=== PATIENT | female | born 1930 | race American Indian/Alaskan Native ===

== ENCOUNTER 2016-10-24 10:46 | Emergency (ER) | payer MEDICARE ==
[2016-10-24 11:18] VITALS: BP 148/102
[2016-10-24] MEDS ORDERED: BACTRIM DS PO ONE (12:18)
[2016-10-24] MEDS ORDERED: BOOSTRIX IM ONE (12:18)
--- NOTE | 2016-10-24 12:24 | Emergency Department Report ---
HPI - General Chief Complaint: Wound/Laceration Time Seen by Provider: 10/24/16 12:17 - HPI HPI: This is a 86-year-old Afro-[place] female presents to the emergency department with a laceration to the left thumb that happened accidentally last night about 9 PM. Patient says she was walking to house when she stumbled and braced herself with what appears to be her left hand. She denies any known trauma that may have caused a laceration but shortly afterward noticed the cut on her left thumb. She stopped the bleeding with some pressure held by a tissue. Patient is concerned as she is diabetic. She denies any current bleeding, surrounding redness, purulent discharge. She has full range of motion. She is unsure last time she had a tetanus vaccination. She has a primary care doctor but has been unable to see them regarding her symptoms. She is right-hand dominant. ED Past Medical Hx - Past Medical History Hx Renal Disease: Yes - Surgical History Additional Surgical History: hysterectomy - Social History Smoking Status: Never Smoker Substance Use Type: None - Medications Home Medications: Home Medications Medication Instructions Recorded Confirmed Last Taken Type Sulfamethoxazole/Trimethoprim 1 each PO BID #14 tablet 10/24/16 Unknown Rx [Bactrim DS TAB] ED Review of Systems ROS: Stated complaint: FINGER INJURY Other details as noted in HPI Comment: All other systems reviewed and negative Constitutional: denies: chills, fever Eyes: denies: eye pain, eye discharge, vision change ENT: denies: ear pain, throat pain Respiratory: denies: cough, shortness of breath, wheezing Cardiovascular: denies: chest pain, palpitations Gastrointestinal: denies: abdominal pain, nausea, diarrhea Genitourinary: denies: urgency, dysuria, discharge Musculoskeletal: denies: back pain, joint swelling Skin: other (laceration). denies: rash, lesions Neurological: denies: headache, weakness, paresthesias Physical Exam - Physical Exam Vital Signs: Vital Signs 10/24/16 11:14 Temperature 98.5 F Pulse Rate 86 Respiratory 18 Rate Blood Pressure 148/102 O2 Sat by Pulse 100 Oximetry Physical Exam: GENERAL: The patient is well-developed well-nourished. HEENT: Normocephalic. Atraumatic. Extraocular motions are intact. Patient has moist mucous membranes. NECK: Supple. Trachea is midline. CHEST/LUNGS: Clear to auscultation. There is no respiratory distress noted. HEART/CARDIOVASCULAR: Regular. There is no tachycardia. There is no gallop rub or murmur. ABDOMEN: Abdomen is soft, nontender. SKIN: There is a L-shaped laceration and/or skin avulsion to the left thumb on the radial side that is about 1.5-2 cm in total length. It is currently completely approximated. No bleeding, weeping or drainage.. NEURO: The patient is awake, alert, and oriented. The patient is cooperative. The patient has no focal neurologic deficits. The patient has normal speech. MUSCULOSKELETAL: There is no tenderness or deformity. There is no limitation range of motion. There is no evidence of acute injury. [employer] strength is 5 over 5 bilaterally. Cap refill less than 2 seconds. Radial pulses +2 over 4 bilaterally. ED Course Vital Signs 10/24/16 11:14 Temperature 98.5 F Pulse Rate 86 Respiratory 18 Rate Blood Pressure 148/102 O2 Sat by Pulse 100 Oximetry - Laceration /Wound Repair Right Finger Wound Location: upper extremity Wound Length (cm): 2 Wound's Depth, Shape: superficial, flap Wound Explored: clean Wound Repaired With: Steri-strips, Dermabond Layer Closure?: No Sterile Dressing Applied?: Yes ED Medical Decision Making - Medical Decision Making 86-year-old female presents to the emergency department with a laceration to the left thumb that occurred last night around 9 PM. Since patient has been here for the past few hours, her wound is at least 12 hours old. It is superficial, and an L shape flap and is well approximated. There is not a currently appear to be any signs of infection. Patient was given her tetanus vaccination and a first dose of Bactrim. The area appears suitable for Steri- Strips and Dermabond which was done per the procedure section. Patient will keep on the sterile dressing and the thumb splint for at least 24 hours. We discussed wound care and monitoring for infection. She will go home with a prescription for Bactrim. She is to follow-up with Dr. Paulino on the next 2-3 days for a wound check and return to the ER sooner with any worsening of her symptoms. - Differential Diagnosis laceration, abrasion, skin avulsion, ulcer Critical Care Time: No Critical care attestation.: If time is entered above; I have spent that time in minutes in the direct care of this critically ill patient, excluding procedure time. ED Disposition Clinical Impression: Laceration of thumb Qualifiers: Encounter type: initial encounter Laterality: left Qualified Code(s): S61.012A - Laceration without foreign body of left thumb without damage to nail, initial encounter Hypertension Qualifiers: Hypertension type: essential hypertension Qualified Code(s): I10 - Essential ( primary) hypertension Disposition: DISCHARGED TO HOME OR SELFCARE Is pt being admited?: No Condition: Stable Instructions: Laceration (ED), Skin Adhesive Care (ED), Hypertension (ED) Additional Instructions: Please keep your bandage on for the next 24 hours. After that take the bandage off and make sure the area is clean and dry. You can use soap and water to clean the area and then make sure it is dry afterwards. The Steri-Strips and skin glue will come off on its own. Take the antibiotics as prescribed. Make sure your blood sugar is well controlled. Follow-up with her primary care doctor in the next few days. Return to the emergency department with any surrounding redness, discharge or pus, continued bleeding, worsening of her symptoms or any acute distress. Prescriptions: Sulfamethoxazole/Trimethoprim [Bactrim DS TAB] 1 each PO BID #14 tablet Referrals: KRISTY ROCHA MD [Primary Care Provider] - 3-5 Days Time of Disposition: 13:02
== END 2016-10-24 13:24 | disposition home or self-care (01) ==
LOC: ED 10:46
DX: S61.012A Laceration without foreign body of left thumb without damage to nail, initial encounter (principal); I10 Essential (primary) hypertension; W45.8XXA Other foreign body or object entering through skin, initial encounter; Y93.89 Activity, other specified; Y99.8 Other external cause status; Y92.89 Other specified places as the place of occurrence of the external cause
CPT/HCPCS: 82962; 90471; 90715

== ENCOUNTER 2018-11-15 10:28 | Emergency (ER) | payer MEDICARE ==
--- NOTE | 2018-11-15 11:12 | Emergency Department Report ---
Blank Doc - Documentation Documentation: This is a 88-year-old female that presents with nausea and vomiting. Denies any other complaints. Granddaughter is with patient. Deneis any abdominal pain or chest pain. Labs ordered Will send to [facility]
--- NOTE | 2018-11-15 11:15 | Emergency Department Report ---
- General Chief complaint: Nausea/Vomiting/Diarrhea Stated complaint: VOMIT/HARD TO SLEEP Time Seen by Provider: 11/15/18 11:05 Source: patient, family Mode of arrival: Ambulatory Limitations: No Limitations - History of Present Illness Initial comments: Patient is a very pleasant 88-year-old -Central [place] female who comes in today with her daughter. The daughter is saying that the patient has had a poor appetite, nausea and difficulty sleeping. Her primary care physician has placed her on Xanax. And since then the patient has been less active than normal. Patient is ambulatory. She denies chest pain shortness of breath or fever. She actually asked and appears much younger than her stated age. -: Gradual Severity: mild - Related Data Previous Rx's Medication Instructions Recorded Last Taken Type Ondansetron [Zofran Odt] 4 mg PO Q8HR PRN #10 tab.rapdis 11/15/18 Unknown Rx hydrOXYzine PAMOATE [Vistaril] 25 mg PO QHS PRN #20 capsule 11/15/18 Unknown Rx Allergies Allergy/AdvReac Type Severity Reaction Status Date / Time No Known Allergies Allergy Verified 11/15/18 10:29 ED Review of Systems ROS: Stated complaint: VOMIT/HARD TO SLEEP Other details as noted in HPI Comment: All other systems reviewed and negative Constitutional: denies: chills, fever Eyes: denies: eye pain ENT: denies: ear pain Respiratory: denies: cough Cardiovascular: denies: chest pain Endocrine: denies: excessive sweating Gastrointestinal: as per HPI, nausea, vomiting. denies: abdominal pain, diarrhea, constipation, hematemesis, melena Genitourinary: denies: urgency Musculoskeletal: denies: back pain Skin: denies: rash Neurological: denies: headache Psychiatric: as per HPI, other (difficulty sleeping). denies: anxiety, depression, auditory hallucinations, visual hallucinations, homicidal thoughts, suicidal thoughts ED Past Medical Hx - Past Medical History Hx Renal Disease: Yes - Surgical History Additional Surgical History: hysterectomy - Social History Smoking Status: Former Smoker Substance Use Type: None - Medications Home Medications: Home Medications Medication Instructions Recorded Confirmed Last Taken Type Ondansetron [Zofran Odt] 4 mg PO Q8HR PRN #10 tab.rapdis 11/15/18 Unknown Rx hydrOXYzine PAMOATE [Vistaril] 25 mg PO QHS PRN #20 capsule 11/15/18 Unknown Rx ED Physical Exam - General Limitations: No Limitations General appearance: alert, in no apparent distress - Head Head exam: Present: atraumatic, normocephalic - Eye Eye exam: Present: PERRL - ENT ENT exam: Present: mucous membranes moist - Neck Neck exam: Present: normal inspection - Respiratory Respiratory exam: Present: normal lung sounds bilaterally - Cardiovascular Cardiovascular Exam: Present: regular rate, tachycardia (resolved on follow-up exam) - GI/Abdominal GI/Abdominal exam: Present: soft, normal bowel sounds. Absent: tenderness - Rectal Rectal exam: Present: deferred - Extremities Exam Extremities exam: Present: normal inspection, full ROM - Back Exam Back exam: Present: normal inspection, full ROM - Neurological Exam Neurological exam: Present: alert, oriented X3, CN II-XII intact, normal gait - Psychiatric Psychiatric exam: Present: normal affect, normal mood, anxious - Skin Skin exam: Present: warm, dry, intact ED Course Vital Signs 11/15/18 11/15/18 10:39 15:16 Temperature 98.9 F Pulse Rate 112 H 78 Respiratory 18 20 Rate Blood Pressure 171/70 Blood Pressure 117/63 [Right] O2 Sat by Pulse 100 99 Oximetry - Reevaluation(s) Reevaluation #1: 11/15/18 home meds metformin hctz proglitazone glimepride asa xanax statin lisinopril ED Medical Decision Making - Lab Data Result diagrams: 11/15/18 11:29 11/15/18 11:26 - EKG Data -: EKG Interpreted by Me EKG shows normal: sinus rhythm Rate: normal - EKG Data When compared to previous EKG there are: no significant change Interpretation: no acute changes - Radiology Data Radiology results: report reviewed, image reviewed NAP - Medical Decision Making Lungs discussion with patient and her family about the Xanax. I told them that this is a very high-risk medication and a frail elderly patient. We discussed increased frequency of falls with Xanax. They're going to stop it and try Vistaril at night. In talking with the patient she is a very strong willed and active 88-year-old who I think is coming to terms with some of her age related limitations in mobility. She is tearful at times on discussion. Also seems a bit depressed at times. There is no dementia. The patient recall short and long-term incidence without difficulty. The patient has been in the ER for several hours and has had no nausea and vomiting. We've discussed appetite and eating. We've also discussed with the daughter the decreased caloric need often needed by the elderly. We have discussed the need for hydration. Labs are noted. Chest x-ray noted. UA noted. 12-lead EKG was completed due to tachycardia and it showed no acute process. The tachycardia resolved. I think it was initially elevated due to patient walking from the waiting room to exam room 37. She did this without chest pain or shortness of breath Patient is being discharged home with her daughter on Zofran as needed. And a prescription for Vistaril. They've been asked to follow-up with the primary care. Labs 11/15/18 11/15/18 11/15/18 11:26 11:29 14:10 WBC 6.2 RBC 3.86 Hgb 11.4 Hct 34.5 MCV 89 MCH 29 MCHC 33 RDW 13.8 Plt Count 272 Lymph % (Auto) 17.7 [place] % (Auto) 6.2 Eos % (Auto) 0.2 Baso % (Auto) 1.2 Lymph # 1.1 L [place] # 0.4 Eos # 0.0 Baso # 0.1 Seg Neutrophils % 74.7 H Seg Neutrophils # 4.6 Sodium 138 Potassium 3.8 Chloride 93.9 L Carbon Dioxide 28 Anion Gap 20 BUN 29 H Creatinine 0.7 Estimated GFR > 60 BUN/Creatinine Ratio 41 Glucose 153 H Calcium 9.6 Total Bilirubin 0.40 AST 19 ALT 8 Alkaline Phosphatase 32 L Troponin T < 0.010 Total Protein 7.1 Albumin 4.2 Albumin/Globulin Ratio 1.4 Lipase 9 L Urine Color Yellow Urine Turbidity Clear Urine pH 5.0 Ur Specific [place] 1.027 Urine Protein 30 mg/dl Urine Glucose (UA) Neg Urine Ketones 20 Urine Blood Neg Urine Nitrite Neg Urine Bilirubin Neg Urine Urobilinogen 2.0 Ur Leukocyte Esterase Tr Urine WBC (Auto) 4.0 Urine RBC (Auto) 10.0 U Epithel Cells (Auto) 1.0 Urine Bacteria (Auto) 1+ Urine Mucus 3+ - Differential Diagnosis RO INFECTION/ RO UTI Critical care attestation.: If time is entered above; I have spent that time in minutes in the direct care of this critically ill patient, excluding procedure time. ED Disposition Clinical Impression: Vomiting, Anxiety Disposition: DC-01 TO HOME OR SELFCARE Is pt being admited?: No Does the pt Need Aspirin: No Condition: Stable Additional Instructions: DO NOT TAKE XANAX USE VISTARIL IF NEEDED CAUTION WITH FALLS DIET TOLERATED MEDS INSTRUCTED FOLLOW UP WITH PCP NEXT WEEK TO BE SURE GETTING BETTER Prescriptions: hydrOXYzine PAMOATE [Vistaril] 25 mg PO QHS PRN #20 capsule PRN Reason: Anxiety Ondansetron [Zofran Odt] 4 mg PO Q8HR PRN #10 tab.rapdis PRN Reason: Vomiting Referrals: EVERETT NAJERA DO [Primary Care Provider] - 3-5 Days Time of Disposition: 13:56
[2018-11-15 11:38] LABS: Basophils # (Auto) 0.1 K/mm3 (0.0-0.1); Basophils % (Auto) 1.2 % (0.0-1.8); Eosinophils % (Auto) 0.2 % (0.0-4.3); Hematocrit 34.5 % (30.3-42.9); Hemoglobin 11.4 gm/dl (10.1-14.3); Lymphocytes # (Auto) 1.1 K/mm3 (1.2-5.4); Lymphocytes % (Auto) 17.7 % (13.4-35.0); Mean Corpuscular HGB Conc 33 % (30-34); Mean Corpuscular Volume 89 fl (79-97); Monocytes # (Auto) 0.4 K/mm3 (0.0-0.8); Monocytes % (Auto) 6.2 % (0.0-7.3); Platelet Count 272 K/mm3 (140-440); Red Blood Count 3.86 M/mm3 (3.65-5.03); Red Cell Distribution Width 13.8 % (13.2-15.2)
[2018-11-15 12:01] LABS: Alanine Aminotransferase 8 units/L (7-56); Albumin 4.2 g/dL (3.9-5); BUN/Creatinine Ratio 41; Blood Urea Nitrogen 29 mg/dL (7-17); Calcium 9.6 mg/dL (8.4-10.2); Hemolysis Index 3
--- NOTE | 2018-11-15 13:35 | XRay Report ---
ROUTINE CHEST, TWO VIEWS: HISTORY: Weakness. The trachea, heart, mediastinal contour, lung doyle and bony thorax are unremarkable. Eventration of the anterior right hemidiaphragm is noted. IMPRESSION: Unremarkable chest x-ray.
[2018-11-15 14:58] LABS: Bacteria,Urine 1+ /HPF (Negative); Bilirubin,Urine NEG (Negative); Blood,Urine NEG (Negative); Color,Urine Yellow (Yellow); Mucus,Urine 3+ /HPF
[2018-11-15 15:17] VITALS: BP 117/63
== END 2018-11-15 15:16 | disposition home or self-care (01) ==
LOC: ED 10:28
DX: F41.9 Anxiety disorder, unspecified (principal); R11.2 Nausea with vomiting, unspecified; R63.0 Anorexia; Z90.710 Acquired absence of both cervix and uterus; Z87.891 Personal history of nicotine dependence
CPT/HCPCS: 36415; 71046; 80053; 81001; 83690; 84484; 85025; 93005; 93010; 99284

== ENCOUNTER 2020-02-16 21:19 | Emergency (ER) | payer MEDICARE ==
--- NOTE | 2020-02-16 22:47 | XRay Report ---
CHEST 2 VIEWS INDICATION: increased mucous production. COMPARISON: Chest x-ray from 11/15/2018 FINDINGS: Support devices: None. Heart: Within normal limits. Lungs/pleura: No acute air space or interstitial disease. No pneumothorax. Additional findings: None. IMPRESSION: 1. No acute findings. Signer Name: Sami Andujar MD Signed: 02/16/2020 10:42 PM Workstation Name: [id number]
--- NOTE | 2020-02-16 23:13 | Emergency Department Report ---
ED General Adult HPI - General Chief complaint: Upper Respiratory Infection Stated complaint: MOUTH PAIN Time Seen by Provider: 02/16/20 22:11 Source: patient Mode of arrival: Ambulatory Limitations: No Limitations - History of Present Illness Initial comments: 89-year-old female the past medical history of dementia brought to the ER by her doctor for complaints of mouth pain last night. Patient apparently has had intermittent compulsions to spit her saliva out x1 year secondary to dementia. Otherwise she is able to eat and drink and swallow food and liquids without difficulty. Patient complains of feeling like something was moving or coming out of her mouth. Patient wears upper and lower dentures and typically sleeps in them and takes them only out in the morning to wash them before putting them back in. Patient denies any pain or discomfort now - Related Data Previous Rx's Medication Instructions Recorded Last Taken Type Ondansetron [Zofran Odt] 4 mg PO Q8HR PRN #10 tab.rapdis 11/15/18 Unknown Rx hydrOXYzine PAMOATE [Vistaril] 25 mg PO QHS PRN #20 capsule 11/15/18 Unknown Rx Allergies Allergy/AdvReac Type Severity Reaction Status Date / Time No Known Allergies Allergy Verified 11/15/18 10:29 ED Review of Systems ROS: Stated complaint: MOUTH PAIN Other details as noted in HPI Comment: All other systems reviewed and negative ED Past Medical Hx - Past Medical History Previous Medical History?: Yes Hx Diabetes: Yes Hx Renal Disease: Yes Hx Dementia: Yes - Surgical History Past Surgical History?: Yes Additional Surgical History: hysterectomy - Social History Smoking Status: Former Smoker Substance Use Type: None - Medications Home Medications: Home Medications Medication Instructions Recorded Confirmed Last Taken Type Ondansetron [Zofran Odt] 4 mg PO Q8HR PRN #10 tab.rapdis 11/15/18 Unknown Rx hydrOXYzine PAMOATE [Vistaril] 25 mg PO QHS PRN #20 capsule 11/15/18 Unknown Rx ED Physical Exam - General Limitations: No Limitations - Other Other exam information: General: No acute distress Head: Atraumatic Eyes: normal appearance ENT: Moist mucous membranes patient is an dentulous and had both upper and lower dentures removed. There were no or ulcerations, rash, thrush, or swelling or tender areas. Patient did have a pedunculated lesion coming from the right lower cheek area of the mouth that was nontender likely chronic. Patient constantly spitting her saliva out during the exam Neck: Normal appearance, no midline tenderness Chest: Clear to auscultation bilaterally CV: Regular rate and rhythm Abdomen: Soft, normal bowel sounds, nontender, nondistended, no rebound or guarding Back: Normal inspection Extremity: Normal inspection, full range of motion Neuro: Oriented to person, hospital, and year, no facial asymmetry, speech clear, no gross motor sensory deficit Psych: Appropriate behavior Skin: No rash ED Course Vital Signs 02/16/20 21:26 Temperature 99.5 F Pulse Rate 95 H Respiratory 18 Rate Blood Pressure 153/76 O2 Sat by Pulse 99 Oximetry ED Medical Decision Making - Radiology Data Radiology results: report reviewed CHEST 2 VIEWS INDICATION: increased mucous production. COMPARISON: Chest x-ray from 11/15/2018 FINDINGS: Support devices: None. Heart: Within normal limits. Lungs/pleura: No acute air space or interstitial disease. No pneumothorax. Additional findings: None. IMPRESSION: 1. No acute findings. - Medical Decision Making Patient has obvious dementia and has very difficulty communicating the exact symptoms that brought her to the ED. She only can say that she felt like something was moving and the temperature was increasing in the top of her mouth. She denies pain. Dentures were removed in the ED and gums appear normal without acute infection or lesions. Incidental pedunculated lesion noted in the mouth that is nontender. Patient spitting into a bag during examination which is chronic as per patient's daughter at the bedside. Daughter states otherwise patient is able to swallow food and liquids without difficulty. Outpatient follow-up will be encouraged. Pmd Dr Rocha Critical Care Time: No Critical care attestation.: If time is entered above; I have spent that time in minutes in the direct care of this critically ill patient, excluding procedure time. ED Disposition Clinical Impression: Dementia, Wears dentures, Mass of oral cavity Disposition: DC-01 TO HOME OR SELFCARE Is pt being admited?: No Does the pt Need Aspirin: No Condition: Stable Instructions: Dementia (ED) Additional Instructions: Take the medication as prescribed. Follow-up with your doctor or doctor/clinic provided. Return if symptoms worsen as indicated by your discharge instructions. On exam there is a pedunculated lesion on the right side of the mouth which is nontender and likely chronic. Follow-up with your primary carev doctor and oral surgeon for further evaluation and diagnosis. No other abnormality was seen on exam. Your primary care doctor can provide a referral as needed. Referrals: KRISTY ROCHA MD [Primary Care Provider] - 3-5 Days Time of Disposition: 23:20
[2020-02-18 12:54] VITALS: BP 153/76
== END 2020-02-16 23:51 | disposition home or self-care (01) ==
LOC: ED 21:19
DX: K13.79 Other lesions of oral mucosa (principal); F03.90 Unspecified dementia, unspecified severity, without behavioral disturbance, psychotic disturbance, mood disturbance, and anxiety; E11.9 Type 2 diabetes mellitus without complications; Z79.899 Other long term (current) drug therapy; Z90.710 Acquired absence of both cervix and uterus; Z87.891 Personal history of nicotine dependence; Z97.2 Presence of dental prosthetic device (complete) (partial)
CPT/HCPCS: 71046